=== PATIENT | female | born 1955 | race Caucasian/White ===

== ENCOUNTER 2023-04-02 10:29 | Emergency (ER) | payer MEDICARE, BC ==
[~2023-04-02] VITALS: Ht 167.6 cm; Wt 87.5 kg
[2023-04-02] MEDS ORDERED: HYDROCODON-ACE1 EAC8 (11:00)
[2023-04-02] MEDS ORDERED: FUROSEMIDE40 MG (11:01)
[2023-04-02 11:02] LABS: BASOPHILS 0.9 % (0-2); EOSINOPHILS 1.1 % (0-6); HEMATOCRIT 37.8 % (35.0-50.0); HEMOGLOBIN 12.1 g/dL (12.0-18.0); LYMPHOCYTES 10.7 % (24-44); MCH 29.7 (27-36); MCHC 32.1 g/dl (30-36); MCV 92.3 fl (81-99); MONOCYTES 5.3 % (0-12); PLATELET COUNT 358 K/uL (140-440); RDW 14.7 (10.5-15.0)
[2023-04-02] MEDS ORDERED: FLUCONAZOLE150 MG (11:05)
[2023-04-02] MEDS ORDERED: GLIPIZIDE10 MG (11:05)
[2023-04-02] MEDS ORDERED: ASPIRIN EC325 MG (11:06)
[2023-04-02] MEDS ORDERED: GABAPENTIN300 MG (11:06)
[2023-04-02] MEDS ORDERED: METFORMIN HCL500 MG (11:06)
[2023-04-02] MEDS ORDERED: OMEPRAZOLE20 MG (11:06)
[2023-04-02] MEDS ORDERED: CYCLOBENZAPRINE5 MG (11:07)
[2023-04-02] MEDS ORDERED: LOSARTAN POTASS50 MG (11:07)
[2023-04-02] MEDS ORDERED: LEVOFLOXACIN500 MG (11:07)
[2023-04-02] MEDS ORDERED: METOPROLOL SUCC25 MG (11:07)
[2023-04-02 11:21] LABS: ALBUMIN 2.9 g/dL (3.4-5.0); ALBUMIN/GLOBULIN RATIO 0.6 (1.1-2.4); ANION GAP 15.8 (7-21); BILIRUBIN, TOTAL 0.2 ng/dL (0.2-1.0); BUN/CREATININE RATIO 29.91 (6.0-28.6); CALCIUM 9.2 mg/dL (8.5-10.1); CREATININE, SERUM 1.17 mg/dL (0.55-1.02); POTASSIUM 4.8 mmol/L (3.5-5.1); PROTEIN, TOTAL 7.7 g/dL (6.4-8.2)
[2023-04-02 12:59] LABS: BILIRUBIN, URINE NEGATIVE (negative); BLOOD/HGB, URINE NEGATIVE (Negative); KETONE, URINE NEGATIVE (Negative); LEUK ESTERASE, URINE MODERATE (negative); NITRITE, URINE NEGATIVE (negative)
[2023-04-02 13:12] LABS: RED BLOOD CELLS, URINE 0-1 /hpf (0-5)
[2023-04-02 13:13] LABS: BACTERIA, URINE 2+ /hpf (negative); REFLEX CULTURE, URINE Yes (No)
[2023-04-02 13:20] VITALS: BP 150/70
== END 2023-04-02 13:20 | disposition home or self-care (01) ==
LOC: ED 10:29
PROVIDERS: Emergency Medicine
DX: E11.649 Type 2 diabetes mellitus with hypoglycemia without coma (principal); Z79.899 Other long term (current) drug therapy; Z79.82 Long term (current) use of aspirin; Z79.84 Long term (current) use of oral hypoglycemic drugs; Z91.02 Food additives allergy status
CPT/HCPCS: 36415; 80053; 81001; 84484; 85025; 87088; 99285

== ENCOUNTER 2024-08-03 22:52 | Emergency (ER) | payer OTHER, MEDICARE, MEDICAID ==
[~2024-08-03] VITALS: Ht 167.6 cm; Wt 51.5 kg
[~2024-08-03 22:52] MED LIST: ASPIRIN EC325 MG; CYCLOBENZAPRINE5 MG; FLUCONAZOLE150 MG; FUROSEMIDE40 MG; GABAPENTIN300 MG; GLIPIZIDE10 MG; HYDROCODON-ACE1 EAC8; LEVOFLOXACIN500 MG; LOSARTAN POTASS50 MG; METFORMIN HCL500 MG; METOPROLOL SUCC25 MG; OMEPRAZOLE20 MG
[2024-08-03] MEDS ORDERED: CLOPIDOGREL75 MG PO (23:08)
[2024-08-03] MEDS ORDERED: LO-DOSE ASPIRIN81 MG PO (23:08)
[2024-08-03] MEDS ORDERED: ROSUVASTATIN CA10 MG PO (23:08)
[2024-08-03] MEDS ORDERED: LIDOCAINE/RACEPINEP/TETRACAINE 3 ML SYR TOP ONE (23:30)
[2024-08-04] MEDS ORDERED: AMOX TR-K CLV1 EAC1 PO (01:26)
[2024-08-04] MEDS ORDERED: HYDROCODON-ACE1 EA10 PO (01:26)
[2024-08-04] MEDS ORDERED: AMOXICILLIN/CLAVULANATE K 875 MG HOME.PACK PO ONE (01:30)
[2024-08-04] MEDS ORDERED: HYDROCODONE BIT/ACETAMINOPHEN 5/325 MG 1 TAB HOME.PACK PO ONE (01:30)
[2024-08-04 07:01] VITALS: BP 121/75
== END 2024-08-04 06:30 | disposition home or self-care (01) ==
LOC: ED 22:52
DX: S81.812A Laceration without foreign body, left lower leg, initial encounter (principal); E11.9 Type 2 diabetes mellitus without complications; W54.8XXA Other contact with dog, initial encounter
CPT/HCPCS: 12004; 80053; 83735; 85025; 99283; A9270